=== PATIENT | male | born 1975 | race Caucasian/White ===

== ENCOUNTER 2019-06-01 09:04 | Emergency (ER) | payer MEDICARE, SELFPAY | END 2019-06-01 09:46 | disposition home or self-care (01) | PROVIDERS: Emergency Provider Physician Assistant; Family Provider Family Medicine; Visit Provider Physician Assistant | DX: Z85.72 Personal history of non-Hodgkin lymphomas (principal); J44.9 Chronic obstructive pulmonary disease, unspecified; I10 Essential (primary) hypertension; Z88.5 Allergy status to narcotic agent; F17.210 Nicotine dependence, cigarettes, uncomplicated | CPT/HCPCS: 99283 ==

== ENCOUNTER 2024-02-15 20:04 | Emergency (ER) | payer MEDICARE, MEDICAID, SELFPAY ==
[2024-02-15 20:08] VITALS: BP 176/92; PULSE 72; RESP 17; TEMP 36.4; O2SAT 98; BMI 28.0
[2024-02-15] MEDS: tetracaine 0.5% Op Soln 4 mL Btl 1 DROP EYE-RIGHT (22:00)
--- NOTE | 2024-02-15 22:29 | ED_ITS ---
HPI - Eye Problem General: Chief complaint: Eye Problems Stated complaint: right eye pain Time Seen by Provider: 02/15/24 21:31 History of Present Illness: 48-year-old male who believes he got ita ething stuck in his eye earlier today. He had been working on a lawnmower, but did not notice anything at that point. Later, he began to feel something very irritating in his eye. He noticed dark speck at about the 7 o'clock position on his iris. He tried to get it off of the tissue at home, but could not. His vision remains normal. No pain with eye movement. Related Data Home Medications Medication Instructions Recorded Confirmed No Known Home Medications 02/19/23 02/19/23 Allergies Allergy/AdvReac Type Severity Reaction Status Date / Time No Known Allergies Allergy Verified 02/15/24 20:10 Course Vital Signs: Vital signs: Vital Signs Temperature 97.6 F 02/15/24 20:08 Pulse Rate 72 02/15/24 20:08 Respiratory Rate 17 02/15/24 20:08 Blood Pressure 176/92 02/15/24 20:08 Pulse Oximetry 98 02/15/24 20:08 Oxygen Delivery Me thod Room Air 02/15/24 20:08 MDM - Eye Problem Medical Decision Making Attempt was made to remove. Used saline flushes, cotton swab, and a 25-gauge needle after local anesthesia with tetracaine. Got most of metal out, 1 tiny speck remains seen only under magnification. Will place the patient on antibiotics. Have him follow-up closely with ophthalmology on Saturday. He will be given the number. To return for worsening symptoms. No radiology studies performed this visit Discharge Plan Discharge Patient Disposition: Home Clinical Impression: Acute foreign body of cornea Qualifiers: Encounter type: initial encounter Laterality: right Qualified Code(s): T15.01XA - Foreign body in cornea, right eye, initial encounter Condition: Stable Prescriptions: No Action No Known Home Medications Discharge Orders: Discharge ED (Routine); Ordered 02/15/24 Ordered By: Rishabh Paris Referrals: Akash Hudson [Physician] - 1-3 days Placido العراقي MD [Family Provider] - Patient Instructions: Eye Foreign Body (ED), Opioid Safety, Pain Management Activity Restrictions/Additional Instructions: Use antibiotic eyedrops every 4 hours while awake. Use the ketorolac eyedrops as needed for pain up to every 6 hours. Call ophthalmology at the number listed above on Saturday morning. Let them know you were seen here with a corneal foreig n body, that was completely removed. They will want you to be seen for follow- up. Return for any new or worsening symptoms. Coding Level of Care Code ED Doubling Machine Operator for Adela Clifford
== END 2024-02-15 23:15 | disposition home or self-care (01) ==
PROVIDERS: Emergency Provider Emergency Medicine; Family Provider Family Medicine
DX: T15.01XA Foreign body in cornea, right eye, initial encounter (principal); W44.9XXA Unspecified foreign body entering into or through a natural orifice, initial encounter
CPT/HCPCS: 99283